=== PATIENT | female | born 1995 | race Hispanic/Latino ===

== ENCOUNTER 2017-05-22 20:36 | Emergency (ER) | payer OTHER ==
[2017-05-22 23:13] LABS: Basophils # (Auto) 0.1 K/mm3 (0.0-0.1); Basophils % (Auto) 0.9 % (0.0-1.8); Eosinophils # (Auto) 0.1 K/mm3 (0.0-0.4); Eosinophils % (Auto) 1.1 % (0.0-4.3); Hematocrit 38.3 % (30.3-42.9); Hemoglobin 12.5 gm/dl (10.1-14.3); Lymphocytes % (Auto) 35.3 % (13.4-35.0); Mean Corpuscular HGB Conc 33 % (30-34); Mean Corpuscular Hemoglobin 28 pg (28-32); Mean Corpuscular Volume 87 fl (79-97); Monocytes # (Auto) 0.8 K/mm3 (0.0-0.8); Monocytes % (Auto) 9.3 % (0.0-7.3); Platelet Count 477 K/mm3 (140-440); Red Blood Count 4.42 M/mm3 (3.65-5.03); Red Cell Distribution Width 13.1 % (13.2-15.2)
--- NOTE | 2017-05-22 23:20 | Emergency Department Report ---
ED Psych HPI - General Chief Complaint: Psych Stated Complaint: MENTAL HEALTH Time Seen by Provider: 05/22/17 23:15 Source: patient, family (mother is bedside) Mode of arrival: Ambulatory - History of Present Illness Initial Comments: Jo Ann is a pleasant 21 year old female who presents with depression and SI. Mother stated that she has been belligerent and temperamental. Jo Ann stated that she saw a "No packing" sign from her mother in the home after her angry outburst. Jo Ann then told her mother that she planned to kill herself. Jo Ann does have SI without discrete plan. However, her mother stated that Jo Ann insisted that she would kill herself. Jo Ann has recently seen a therapist and psychiatrist. Dx'd with ADD. Jo Ann states she feels like a failure. She "needs help". She does feel like a prisoner in her home unable to see her boyfriend as she pleases. She is currently unemploymed. No physical complaints. MD Complaint: suicidal ideation, feels depressed -: month(s) (several months) Associated Psychiatric Symptoms: suicidal ideation, other (previous suicide attempt) - Related Data Home Medications Medication Instructions Recorded Confirmed Last Taken Norgestimate-Ethinyl Estradiol 1 each PO DAILY 05/22/17 05/22/17 05/22/17 [Ortho Tri-Cyclen 28 Tablet] Allergies Allergy/AdvReac Type Severity Reaction Status Date / Time No Known Allergies Allergy Verified 05/22/17 21:20 ED Review of Systems ROS: Stated complaint: MENTAL HEALTH Other details as noted in HPI Comment: All other systems reviewed and negative Constitutional: denies: chills, fever Cardiovascular: denies: chest pain Gastrointestinal: denies: abdominal pain ED Past Medical Hx - Past Medical History Hx Psychiatric Treatment: Yes - Surgical History Past Surgical History?: No - Social History Smoking Status: Current Every Day Smoker Substance Use Type: None - Medications Home Medications: Home Medications Medication Instructions Recorded Confirmed Last Taken Type Norgestimate-Ethinyl Estradiol 1 each PO DAILY 05/22/17 05/22/17 05/22/17 History [Ortho Tri-Cyclen 28 Tablet] ED Physical Exam - General Limitations: No Limitations General appearance: alert, in no apparent distress - Head Head exam: Present: atraumatic, normocephalic - Eye Eye exam: Present: normal appearance - ENT ENT exam: Present: normal exam, mucous membranes moist - Neck Neck exam: Present: normal inspection. Absent: tenderness, meningismus - Respiratory Respiratory exam: Present: normal lung sounds bilaterally. Absent: respiratory distress, wheezes, rales, rhonchi - Cardiovascular Cardiovascular Exam: Present: regular rate, normal rhythm. Absent: systolic murmur, diastolic murmur, rubs, gallop - GI/Abdominal GI/Abdominal exam: Present: soft, normal bowel sounds. Absent: distended, tenderness, guarding, rebound - Extremities Exam Extremities exam: Present: normal inspection - Back Exam Back exam: Present: normal inspection - Neurological Exam Neurological exam: Present: alert, oriented X3 - Psychiatric Psychiatric exam: Present: normal affect, depressed, anxious, suicidal ideation. Absent: homicidal ideation - Skin Skin exam: Present: warm, dry, intact, normal color. Absent: rash ED Course Vital Signs 05/22/17 21:21 Temperature 98.7 F Pulse Rate 94 H Respiratory 16 Rate Blood Pressure 126/87 O2 Sat by Pulse 97 Oximetry ED Medical Decision Making - Lab Data Result diagrams: 05/22/17 22:58 05/22/17 22:58 Laboratory Results - last 24 hr 05/22/17 05/22/17 05/22/17 21:26 21:26 22:58 WBC RBC Hgb Hct MCV MCH MCHC RDW Plt Count Lymph % (Auto) [place] % (Auto) Eos % (Auto) Baso % (Auto) Lymph # [place] # Eos # Baso # Seg Neutrophils % Seg Neutrophils # Sodium Potassium Chloride Carbon Dioxide Anion Gap BUN Creatinine Estimated GFR BUN/Creatinine Ratio Glucose Calcium Urine Color Yellow Urine Turbidity Clear Urine pH 5.0 Ur Specific [place] 1.025 Urine Protein <15 mg/dl Urine Glucose (UA) Neg Urine Ketones Neg Urine Blood Sm Urine Nitrite Neg Urine Bilirubin Neg Urine Urobilinogen < 2.0 Ur Leukocyte Esterase Neg Urine WBC (Auto) 12.0 H Urine RBC (Auto) 5.0 U Epithel Cells (Auto) 22.0 H Hyaline Casts 1 Urine Mucus 3+ Urine HCG, Qual Negative Salicylates < 0.3 L Urine Opiates Screen Presumptive negative Urine Methadone Screen Presumptive negative Acetaminophen Ur Barbiturates Screen Presumptive negative Ur Phencyclidine Scrn Presumptive negative Ur Amphetamines Screen Presumptive positive U Benzodiazepines Scrn Presumptive negative Urine Cocaine Screen Presumptive negative U Marijuana (THC) Screen Presumptive positive Drugs of Abuse Note Disclamer Plasma/Serum Alcohol 05/22/17 05/22/17 05/22/17 22:58 22:58 22:58 WBC RBC Hgb Hct MCV MCH MCHC RDW Plt Count Lymph % (Auto) [place] % (Auto) Eos % (Auto) Baso % (Auto) Lymph # [place] # Eos # Baso # Seg Neutrophils % Seg Neutrophils # Sodium 139 Potassium 4.7 Chloride 101.9 Carbon Dioxide 27 Anion Gap 15 BUN 11 Creatinine 0.6 L Estimated GFR > 60 BUN/Creatinine Ratio 18 Glucose 115 H Calcium 8.3 L Urine Color Urine Turbidity Urine pH Ur Specific [place] Urine Protein Urine Glucose (UA) Urine Ketones Urine Blood Urine Nitrite Urine Bilirubin Urine Urobilinogen Ur Leukocyte Esterase Urine WBC (Auto) Urine RBC (Auto) U Epithel Cells (Auto) Hyaline Casts Urine Mucus Urine HCG, Qual Salicylates Urine Opiates Screen Urine Methadone Screen Acetaminophen < 5.0 L Ur Barbiturates Screen Ur Phencyclidine Scrn Ur Amphetamines Screen U Benzodiazepines Scrn Urine Cocaine Screen U Marijuana (THC) Screen Drugs of Abuse Note Plasma/Serum Alcohol < 0.01 05/22/17 22:58 WBC 8.5 RBC 4.42 Hgb 12.5 Hct 38.3 MCV 87 MCH 28 MCHC 33 RDW 13.1 L Plt Count 477 H Lymph % (Auto) 35.3 H [place] % (Auto) 9.3 H Eos % (Auto) 1.1 Baso % (Auto) 0.9 Lymph # 3.0 Mcleod # 0.8 Eos # 0.1 Baso # 0.1 Seg Neutrophils % 53.4 Seg Neutrophils # 4.6 Sodium Potassium Chloride Carbon Dioxide Anion Gap BUN Creatinine Estimated GFR BUN/Creatinine Ratio Glucose Calcium Urine Color Urine Turbidity Urine pH Ur Specific [place] Urine Protein Urine Glucose (UA) Urine Ketones Urine Blood Urine Nitrite Urine Bilirubin Urine Urobilinogen Ur Leukocyte Esterase Urine WBC (Auto) Urine RBC (Auto) U Epithel Cells (Auto) Hyaline Casts Urine Mucus Urine HCG, Qual Salicylates Urine Opiates Screen Urine Methadone Screen Acetaminophen Ur Barbiturates Screen Ur Phencyclidine Scrn Ur Amphetamines Screen U Benzodiazepines Scrn Urine Cocaine Screen U Marijuana (THC) Screen Drugs of Abuse Note Plasma/Serum Alcohol Laboratory Results - last 24 hr 05/22/17 05/22/17 05/22/17 21:26 21:26 22:58 WBC RBC Hgb Hct MCV MCH MCHC RDW Plt Count Lymph % (Auto) [place] % (Auto) Eos % (Auto) Baso % (Auto) Lymph # [place] # Eos # Baso # Seg Neutrophils % Seg Neutrophils # Sodium Potassium Chloride Carbon Dioxide Anion Gap BUN Creatinine Estimated GFR BUN/Creatinine Ratio Glucose Calcium Urine Color Yellow Urine Turbidity Clear Urine pH 5.0 Ur Specific [place] 1.025 Urine Protein <15 mg/dl Urine Glucose (UA) Neg Urine Ketones Neg Urine Blood Sm Urine Nitrite Neg Urine Bilirubin Neg Urine Urobilinogen < 2.0 Ur Leukocyte Esterase Neg Urine WBC (Auto) 12.0 H Urine RBC (Auto) 5.0 U Epithel Cells (Auto) 22.0 H Hyaline Casts 1 Urine Mucus 3+ Urine HCG, Qual Negative Salicylates < 0.3 L Urine Opiates Screen Presumptive negative Urine Methadone Screen Presumptive negative Acetaminophen Ur Barbiturates Screen Presumptive negative Ur Phencyclidine Scrn Presumptive negative Ur Amphetamines Screen Presumptive positive U Benzodiazepines Scrn Presumptive negative Urine Cocaine Screen Presumptive negative U Marijuana (THC) Screen Presumptive positive Drugs of Abuse Note Disclamer Plasma/Serum Alcohol 05/22/17 05/22/17 05/22/17 22:58 22:58 22:58 WBC RBC Hgb Hct MCV MCH MCHC RDW Plt Count Lymph % (Auto) [place] % (Auto) Eos % (Auto) Baso % (Auto) Lymph # [place] # Eos # Baso # Seg Neutrophils % Seg Neutrophils # Sodium 139 Potassium 4.7 Chloride 101.9 Carbon Dioxide 27 Anion Gap 15 BUN 11 Creatinine 0.6 L Estimated GFR > 60 BUN/Creatinine Ratio 18 Glucose 115 H Calcium 8.3 L Urine Color Urine Turbidity Urine pH Ur Specific [place] Urine Protein Urine Glucose (UA) Urine Ketones Urine Blood Urine Nitrite Urine Bilirubin Urine Urobilinogen Ur Leukocyte Esterase Urine WBC (Auto) Urine RBC (Auto) U Epithel Cells (Auto) Hyaline Casts Urine Mucus Urine HCG, Qual Salicylates Urine Opiates Screen Urine Methadone Screen Acetaminophen < 5.0 L Ur Barbiturates Screen Ur Phencyclidine Scrn Ur Amphetamines Screen U Benzodiazepines Scrn Urine Cocaine Screen U Marijuana (THC) Screen Drugs of Abuse Note Plasma/Serum Alcohol < 0.01 05/22/17 22:58 WBC 8.5 RBC 4.42 Hgb 12.5 Hct 38.3 MCV 87 MCH 28 MCHC 33 RDW 13.1 L Plt Count 477 H Lymph % (Auto) 35.3 H [place]cle[place] % (Auto) 9.3 H Eos % (Auto) 1.1 Baso % (Auto) 0.9 Lymph # 3.0 Mcleod # 0.8 Eos # 0.1 Baso # 0.1 Seg Neutrophils % 53.4 Seg Neutrophils # 4.6 Sodium Potassium Chloride Carbon Dioxide Anion Gap BUN Creatinine Estimated GFR BUN/Creatinine Ratio Glucose Calcium Urine Color Urine Turbidity Urine pH Ur Specific [place] Urine Protein Urine Glucose (UA) Urine Ketones Urine Blood Urine Nitrite Urine Bilirubin Urine Urobilinogen Ur Leukocyte Esterase Urine WBC (Auto) Urine RBC (Auto) U Epithel Cells (Auto) Hyaline Casts Urine Mucus Urine HCG, Qual Salicylates Urine Opiates Screen Urine Methadone Screen Acetaminophen Ur Barbiturates Screen Ur Phencyclidine Scrn Ur Amphetamines Screen U Benzodiazepines Scrn Urine Cocaine Screen U Marijuana (THC) Screen Drugs of Abuse Note Plasma/Serum Alcohol Vital Signs - 24 hr 05/22/17 21:21 Temperature 98.7 F Pulse Rate 94 H Respiratory 16 Rate Blood Pressure 126/87 O2 Sat by Pulse 97 Oximetry - Medical Decision Making Jo Ann is medically clear for psychiatric care. No medical conditions exists which needs stabilization. Awaiting mental health consultation. +SI without plan to harm herself. Has had labile mood and depression Critical care attestation.: If time is entered above; I have spent that time in minutes in the direct care of this critically ill patient, excluding procedure time. ED Disposition Clinical Impression: Depression, Suicidal ideation Disposition: [id number]/TX-[id number] ANOTHER TYPE HLTHCARE Is pt being admited?: No Does the pt Need Aspirin: No Condition: Stable Referrals: PRIMARY CARE, [Primary Care Provider] - 3-5 Days
[2017-05-22 23:36] LABS: BUN/Creatinine Ratio 18; Blood Urea Nitrogen 11 mg/dL (7-17); Calcium 8.3 mg/dL (8.4-10.2); Hemolysis Index 0
[2017-05-23 00:36] LABS: Bilirubin,Urine NEG (Negative); Blood,Urine SM (Negative); Color,Urine Yellow (Yellow); Hyaline Casts,Urine 1 /LPF; Mucus,Urine 3+ /HPF; Protein,Urine <15 mg/dL mg/dL (Negative); Urobilinogen,Urine < 2.0 mg/dL (<2.0)
[2017-05-23 00:57] LABS: HCG Qualitative,Urine Negative (Negative)
[2017-05-23 01:28] LABS: Benzodiazepines Screen,Urine PRESUMPTIVE NEGATIVE; Cocaine Screen,Urine PRESUMPTIVE NEGATIVE; Methadone Screen,Urine PRESUMPTIVE NEGATIVE; Opiate Screen,Urine PRESUMPTIVE NEGATIVE
[2017-05-23 01:43] LABS: Amphetamine Screen,Urine PRESUMPTIVE POSITIVE
[2017-05-23 01:44] LABS: Cannabinoid Screen,Urine PRESUMPTIVE POSITIVE
[2017-05-23] MEDS ORDERED: MOTRIN PO PRN (16:35)
--- NOTE | 2017-05-23 16:57 | Consultation ---
History of Present Illness - Reason for Consult Consult date: 05/23/17 Reason for consult: mental health evaluation Requesting physician: RAFFI TRUJILLO - Chief Complaint Chief complaint: "I had a temper tantrum". - History of Present Psychiatric Illness 21-year-old female was brought to the emergency room after she had made suicidal threats, after an argument with her parents. Patient reported her parents had told her to "pack up", and after that they got into an argument slip to her making suicidal threats. Patient did report feeling depressed and" life is pointless". She did report feeling hopeless and helpless and also having anhedonia. She was tearful during the discussion. She however was minimizing her suicidal threats. Patient did present with superficial cuts on her left forearm, which were cut yesterday. She did report having severe mood swings, during which she is throwing things and destroying furniture. She did endorse high anxiety levels. She denied any current or past history of auditory or visual hallucinations or any paranoia. He and appetite are fair. Patient did agree that she smokes marijuana. However her urine drug screen was also positive for amphetamines, which she was vague about. Medications and Allergies Allergies Allergy/AdvReac Type Severity Reaction Status Date / Time No Known Allergies Allergy Verified 05/22/17 21:20 Home Medications Medication Instructions Recorded Confirmed Last Taken Type Norgestimate-Ethinyl Estradiol 1 each PO DAILY 05/22/17 05/22/17 05/22/17 History [Ortho Tri-Cyclen 28 Tablet] Active Meds: Active Medications Ibuprofen (Motrin) 800 mg PO TID PRN PRN Reason: Menstrual Cramps Last Admin: 05/23/17 16:47 Dose: 800 mg Mental Status Exam - Vital signs Last Vital Signs Temp 98.7 F 05/22/17 21:21 Pulse 94 H 05/22/17 21:21 Resp 16 05/23/17 16:47 BP 126/87 05/22/17 21:21 Pulse Ox 97 05/22/17 21:21 - Exam Orientation: time, place, person Affect: other (tearful) Mood: hopeless, sad, anxious Thought Process: Intact Perceptions: none Speech: normal rate and pattern Concentration: focused Motor activity: normal Level of consciousness: alert Memory: Intact Sleep Symptoms: None Results Result Diagrams: 05/22/17 22:58 05/22/17 22:58 Abnormal lab results 05/22/17 05/22/17 05/22/17 Range/Units 21:26 22:58 22:58 RDW (13.2-15.2) % Plt Count (140-440) K/mm3 Lymph % (Auto) (13.4-35.0) % [place] % (Auto) (0.0-7.3) % Creatinine (0.7-1.2) mg/dL Glucose (65-100) mg/dL Calcium (8.4-10.2) mg/dL Urine WBC (Auto) 12.0 H (0.0-6.0) /HPF U Epithel Cells (Auto) 22.0 H (0-13.0) /HPF Salicylates < 0.3 L (2.8-20.0) mg/dL Acetaminophen < 5.0 L (10.0-30.0) ug/mL 05/22/17 05/22/17 Range/Units 22:58 22:58 RDW 13.1 L (13.2-15.2) % Plt Count 477 H (140-440) K/mm3 Lymph % (Auto) 35.3 H (13.4-35.0) % [place] % (Auto) 9.3 H (0.0-7.3) % Creatinine 0.6 L (0.7-1.2) mg/dL Glucose 115 H (65-100) mg/dL Calcium 8.3 L (8.4-10.2) mg/dL Urine WBC (Auto) (0.0-6.0) /HPF U Epithel Cells (Auto) (0-13.0) /HPF Salicylates (2.8-20.0) mg/dL Acetaminophen (10.0-30.0) ug/mL All other labs normal. Assessment and Plan Assessment and plan: Assessment: Major depressive disorder recurrent severe Cannabis use disorder R/O Methamphetamine use disorder Plan: Continue the patient on 1013 and initiate procedure for psychiatric hospital placement. Patient at this time was reluctant to be started on any low-dose antidepressant will help with her mood symptoms. Collateral should be obtained from her family.
[2017-05-23 18:48] VITALS: BP 127/63
== END 2017-05-23 18:56 | disposition other institution (70) ==
LOC: ED 20:36
DX: F32.9 Major depressive disorder, single episode, unspecified (principal); F17.200 Nicotine dependence, unspecified, uncomplicated
CPT/HCPCS: 36415; 80048; 80307; 81001; 81025; 85025; 99283; G0480; 80320